=== PATIENT | female | born 1965 | race Caucasian/White ===

== ENCOUNTER 2017-12-16 09:16 | Emergency (ER) | payer OTHER ==
[2017-12-16] MEDS: KETOROLAC 30 MG INJ IM (09:47)
== END 2017-12-16 10:18 | disposition home or self-care (01) ==
LOC: FTE 09:16
DX: R51 Headache (principal); J45.909 Unspecified asthma, uncomplicated
CPT/HCPCS: 96372; 99284-25

== ENCOUNTER 2018-09-26 20:21 | Emergency (ER) | payer OTHER | END 2018-09-27 00:54 | disposition home or self-care (01) | LOC: FTE 09-27 00:54 | DX: S92.421A Displaced fracture of distal phalanx of right great toe, initial encounter for closed fracture (principal); J45.909 Unspecified asthma, uncomplicated; W22.8XXA Striking against or struck by other objects, initial encounter; Y92.9 Unspecified place or not applicable | CPT/HCPCS: 73660; 99283-25 ==

== ENCOUNTER 2018-11-04 17:43 | Emergency (ER) | payer OTHER | END 2018-11-04 21:54 | disposition home or self-care (01) | LOC: FTE 17:43 | DX: S90.111A Contusion of right great toe without damage to nail, initial encounter (principal); J45.909 Unspecified asthma, uncomplicated; W20.8XXA Other cause of strike by thrown, projected or falling object, initial encounter; Y92.9 Unspecified place or not applicable | CPT/HCPCS: 73660; 99283-25 ==